=== PATIENT | male | born 1990 | race Caucasian/White ===

== ENCOUNTER 2024-01-10 16:08 | Emergency (ER) | payer BC, SELFPAY ==
[2024-01-10 16:14] VITALS: BP 165/98; PULSE 78; TEMP 36.9; O2SAT 96; BMI 29.2
--- NOTE | 2024-01-10 16:24 | ED.ANIMALBI1 ---
HPI - Animal Bite General Chief Complaint: Animal Bite Stated Complaint: CAT BITE Time Seen by Provider: 01/10/24 16:18 Source: patient Mode of arrival: walk-in Limitations: no limitations History of Present Illness HPI narrative: 33-year-old male presents for a cat bite. It was sustained to his right forearm last night on his front porch. He was attempting to give some water to a stray cat and apparently he got too close and the cat bit him. He does not recall his last tetanus shot, it has been a very long time. He was encouraged by people to come to the ER to get checked. No weakness or numbness in his hand. No fever. Related Data Previous Rx's ?Medication ?Instructions ?Recorded amoxicillin 875 mg-potassium 1 tab PO BID #10 tabs 01/10/24 clavulanate 125 mg tablet Allergies Allergy/AdvReac Type Severity Reaction Status Date / Time azithromycin [From Zithromax] Allergy Mild Hives Verified 01/10/24 16:18 Review of Systems ROS Narrative A ten point review of systems is negative except as noted above. Exam Narrative Exam Narrative: Nurses note and vital signs reviewed and patient is not hypoxic. General: The patient appears well and in no apparent distress. Patient is resting comfortably on cart. Skin: Warm, dry, no pallor noted. There is no rash noted. Head: Normocephalic, atraumatic Eye: Normal conjunctiva, no drainage Ears, Nose, Mouth, and Throat: oral mucosa is moist. Nares patent. Cardiovascular: Regular Rate and Rhythm Respiratory: Patient is in no distress, no accessory muscle use GI: Soft and nontender Musculoskeletal: He has a few puncture patel on the right forearm. No drainage or surrounding erythema. Neurological: Awake and alert. Fingers of the right hand have full range of motion Psychiatric: Cooperative Constitutional Vital Signs, click to edit/add: Last Vital Signs Temp 98.4 F 01/10/24 16:14 Pulse 78 01/10/24 16:14 Resp 16 01/10/24 16:14 BP 165/98 H 01/10/24 16:14 Pulse Ox 96 01/10/24 16:14 O2 Del Method Room Air 01/10/24 16:14 Course Vital Signs Vital signs: Vital Signs Temperature 98.4 F 01/10/24 16:14 Pulse Rate 78 01/10/24 16:14 Respiratory Rate 16 01/10/24 16:14 Blood Pressure 165/98 H 01/10/24 16:14 Pulse Oximetry 96 01/10/24 16:14 Oxygen Delivery Method Room Air 01/10/24 16:14 Temperature 98.4 F 01/10/24 16:14 Pulse Rate 78 01/10/24 16:14 Respiratory Rate 16 01/10/24 16:14 Blood Pressure 165/98 H 01/10/24 16:14 Pulse Oximetry 96 01/10/24 16:14 Oxygen Delivery Method Room Air 01/10/24 16:14 MDM - Animal Bite MDM Narrative Medical decision making narrative: Tetanus is updated and he was prescribed prophylactic Augmentin. Treatment diagnosis and follow-up were discussed with the patient. I do not suspect rabies exposure Differential Diagnosis Differential diagnosis: Likely cat bite and other (Cellulitis) Discharge Plan Discharge Stand Alone Forms: Portal Instructions Chief Complaint: Animal Bite Clinical Impression: Cat bite Patient Disposition: Home, Self-Care Time of Disposition Decision: 16:23 Condition: Good Mode of Transportation: Private Vehicle Prescriptions / Home Meds: New amoxicillin-pot clavulanate 875-125 mg tablet 1 tab PO BID Qty: 10 0RF Print Language: [place] Referrals: NIDA BELL [Primary Care Provider] - 1 week
[2024-01-10] MEDS: ADACEL DIPH,PERTUSS(ACELL),TET VAC/PF 0.5 ML ADULT SYRINGE IM (16:27)
== END 2024-01-10 16:30 | disposition home or self-care (01) ==
PROVIDERS: Emergency Provider Emergency Medicine; PCP Family Medicine
DX: S51.851A Open bite of right forearm, initial encounter (principal); W55.01XA Bitten by cat, initial encounter; Z23 Encounter for immunization
CPT/HCPCS: 90471; 90715; 99283